=== PATIENT | female | born 1970 | race Hispanic/Latino ===

== ENCOUNTER 2019-04-18 17:15 | Emergency (ER) | payer BC, OTHER, SELFPAY ==
--- NOTE | 2019-04-18 18:28 | ER ---
Nurse's Notes [facility] Name: Yvette Davis Age: 49 yrs Sex: Female : 1970 Arrival Date: 04/18/2019 Time: 17:16 Bed 5 Private MD: Diagnosis: Dizziness and giddiness Presentation: 04/18 17:19 Presenting complaint: Patient states: "We were at the [employer] and when I got out aj1 I walked into the shower area and there was a smell and I felt like throwing up, and then I started feeling dizzy" Reports that this started 20 minutes ago and she has vomited several times since then. Patient reports that the smell she smelled smelled like urine. Transition of care: patient was not received from another setting of care. Onset of symptoms was April 18, 2019. Risk Assessment: Do you want to hurt yourself or someone else? Patient reports no desire to harm self or others. Initial Sepsis Screen: Does the patient meet any 2 criteria? No. Patient's initial sepsis screen is negative. Does the patient have a suspected source of infection? No. Patient's initial sepsis screen is negative. Care prior to arrival: None. 17:19 Method Of Arrival: Ambulatory aj1 17:19 Acuity: LILIAN 3 aj1 Triage Assessment: 17:21 General: Appears in no apparent distress. comfortable, Behavior is calm, cooperative, aj1 appropriate for age. Pain: Denies pain. Neuro: Level of Consciousness is awake, alert, obeys commands, Oriented to person, place, time, situation, Reports dizziness. Cardiovascular: Patient's skin is warm and dry. Respiratory: Airway is patent Respiratory effort is even, unlabored, Respiratory pattern is regular, symmetrical. GI: Reports nausea, vomiting. 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 - Social history:: Smoking status: Patient/guardian denies using tobacco. - Ebola Screening: : Patient denies travel to an Ebola-affected area in the 21 days before illness onset. - Family history:: not pertinent. - Hospitalizations: : No recent hospitalization is reported. Screenin:40 Abuse screen: Denies threats or abuse. Denies injuries from another. Nutritional iw screening: No deficits noted. Tuberculosis screening: No symptoms or risk factors identified. Fall Risk None identified. Assessment: 18:40 General: Appears Behavior is calm, cooperative. Pain: Denies pain. Neuro: Level of iw Consciousness is awake, alert, obeys commands, Oriented to person, place, time, situation. Cardiovascular: Patient's skin is warm and dry. Respiratory: Respiratory effort is even, unlabored, Respiratory pattern is regular. GI: Abdomen is flat, Reports nausea. Derm: Skin is intact, is healthy with good turgor. Musculoskeletal: Range of motion: intact in all extremities. Vital Signs: 17:21 BP 121 / 82; Pulse 90; Resp 18; Temp 97.1; Pulse Ox 95% on R/A; Weight 81.65 kg (R); aj1 Height 5 ft. 2 in. (157.48 cm) (R); Pain 0/10; 17:21 Body Mass Index 32.92 (81.65 kg, 157.48 cm) aj1 ED Course: 17:16 Patient arrived in ED. as 17:21 Triage completed. aj1 17:21 Arm band placed on Patient placed in waiting room, Patient notified of wait time. aj1 18:09 Willy Diez MD is Attending Physician. rn 18:52 Aaliyah Low RN is Primary Nurse. iw 18:52 Patient has correct armband on for positive identification. iw 18:54 No provider procedures requiring assistance completed. Patient did not have IV access iw during this emergency room visit. Administered Medications: No medications were administered Outcome: 18:28 Discharge ordered by . rn 18:51 Discharged to home ambulatory, with family. iw 18:51 Condition: good 18:51 Discharge instructions given to patient, family, Instructed on discharge instructions, follow up and referral plans. Demonstrated understanding of instructions, follow-up care. 18:52 Patient left the ED. iw Signatures: Betty Poe, RN RN aj1 Kaelyn Haile as Aaliyah Low, LOUANN RN iw Willy Diez MD MD supervisor international reservations: (The following items were deleted from the chart) 17:23 17:19 Presenting complaint: Patient states: "We were at the [employer] and when I aj1 got out I walked into the shower area and there was a smell and I felt like throwing up, and then I started feeling dizzy" Reports that this started 20 minutes ago and she has vomited several times since then. aj1
--- NOTE | 2019-04-18 18:29 | EDPHYS ---
Physician Documentation [facility] Name: Yvette Davis Age: 49 yrs Sex: Female : 1970 Arrival Date: 04/18/2019 Time: 17:16 Bed 5 Private MD: ED Physician Willy Diez HPI: 04/18 18:21 This 49 yrs old Female presents to ER via Ambulatory with complaints of rn Dizziness, Nausea. 18:21 The patient presents with dizziness, lightheadedness. Onset: The symptoms/episode rn began/occurred just prior to arrival. Modifying factors: The symptoms are alleviated by nothing, the symptoms are aggravated by nothing. Severity of symptoms: At their worst the symptoms were moderate in the emergency department the symptoms have resolved. The patient has not experienced similar symptoms in the past. Reports at public pool, went to locker room, smelled strong odor, instantly got lightheaded and dizzy, no syncope, went outside, gave fluids and snack since hadn't eaten, episode was brief and resolved on its own, now asymptomatic. . 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 - Social history:: Smoking status: Patient/guardian denies using tobacco. - Ebola Screening: : Patient denies travel to an Ebola-affected area in the 21 days before illness onset. - Family history:: not pertinent. - Hospitalizations: : No recent hospitalization is reported. ROS: 18:21 Constitutional: Negative for fever, chills, and weight loss, Eyes: Negative for injury, rn pain, redness, and discharge, Neck: Negative for injury, pain, and swelling, Cardiovascular: Negative for chest pain, palpitations, and edema, Respiratory: Negative for shortness of breath, cough, wheezing, and pleuritic chest pain, Abdomen/GI: Negative for abdominal pain, diarrhea, and constipation, Back: Negative for injury and pain, : Negative for injury, bleeding, discharge, and swelling, MS/Extremity: Negative for injury and deformity, Skin: Negative for injury, rash, and discoloration, Neuro: Negative for headache, weakness, numbness, tingling, and seizure. Exam: 18:21 Constitutional: This is a well developed, well nourished patient who is awake, alert, rn and in no acute distress. Head/Face: Normocephalic, atraumatic. Eyes: Pupils equal round and reactive to light, extra-ocular motions intact. Lids and lashes normal. Conjunctiva and sclera are non-icteric and not injected. Cornea within normal limits. Periorbital areas with no swelling, redness, or edema. ENT: MMM Neck: Trachea midline, no thyromegaly or masses palpated, and no cervical lymphadenopathy. Supple, full range of motion without nuchal rigidity, or vertebral point tenderness. No Meningismus. Cardiovascular: Regular rate and rhythm. No pulse deficits. Respiratory: No increased work of breathing, no retractions or nasal flaring. Abdomen/GI: soft, non-tender MS/ Extremity: Pulses equal, no cyanosis. Neurovascular intact. Full, normal range of motion. Equal circumference. Neuro: Awake and alert, GCS 15, oriented to person, place, time, and situation. Cranial nerves II-XII grossly intact. Motor strength 5/5 in all extremities. Sensory grossly intact. Normal gait. Vital Signs: 17:21 BP 121 / 82; Pulse 90; Resp 18; Temp 97.1; Pulse Ox 95% on R/A; Weight 81.65 kg (R); aj1 Height 5 ft. 2 in. (157.48 cm) (R); Pain 0/10; 17:21 Body Mass Index 32.92 (81.65 kg, 157.48 cm) aj1 MDM: 18:09 Patient medically screened. rn 18:26 Differential diagnosis: generalized weakness, hyperventilation, hypovolemia, idiopathic rn dizziness, vertigo, noxious response, hypoglycemia, dehydration. Data reviewed: vital signs, nurses notes, and as a result, I will discharge patient. Counseling: I had a detailed discussion with the patient and/or guardian regarding: the historical points, exam findings, and any diagnostic results supporting the discharge/admit diagnosis, the need for outpatient follow up, to return to the emergency department if symptoms worsen or persist or if there are any questions or concerns that arise at home. Special discussion: I discussed with the patient/guardian in detail that at this point there is no indication for admission to the hospital. It is understood, however, that if the symptoms persist or worsen the patient needs to return immediately for re-evaluation. ED course: Pt back to baseline prior to arrival, never had chest pain, normal neuro exam, brief and states happened immediately after smell, small daughter not affected, and currently asymptomatic. Return precautions given and understood.. Administered Medications: No medications were administered Disposition: 04/18/19 18:28 Discharged to Home. Impression: Dizziness and giddiness. - Condition is Stable. - Discharge Instructions: Dizziness. - Medication Reconciliation Form, Thank You Letter, Antibiotic Education, Prescription Opioid Use form. - Follow up: Private Physician; When: As needed; Reason: Recheck today's complaints, Re-evaluation by your physician. - Problem is new. - Symptoms are resolved. Signatures: Betty Poe RN RN aj1 Aaliyah Low RN RN iw Willy Diez MD MD video editing internship: (The following items were deleted from the chart) 18:52 18:28 04/18/2019 18:28 Discharged to Home. Impression: Dizziness and giddiness. iw Condition is Stable. Forms are Medication Reconciliation Form, Thank You Letter, Antibiotic Education, Prescription Opioid Use. Follow up: Private Physician; When: As needed; Reason: Recheck today's complaints, Re-evaluation by your physician. Problem is new. Symptoms are resolved. rn
[2019-04-18 18:57] VITALS: BP 121/82; TEMP 97.1; O2SAT 95
== END 2019-04-18 18:52 | disposition home or self-care (01) ==
LOC: ER 17:15
DX: R42 Dizziness and giddiness (principal)
CPT/HCPCS: 99281